=== PATIENT | female | born 1965 | race Two or more races ===

== ENCOUNTER 2017-12-25 08:39 | Day surgery (SDC) | payer OTHER ==
[~2017-12-25 08:39] MED LIST: DICLOFENAC SOD100 MG PO; HYDROCHLOROTH12.5 MG PO; LANTUS SOL100 UNIT/1; NEURONTIN300 MG PO; NOVOLOG100 UNIT/1; RAMIPRIL2.5 MG PO; SIMVASTATIN10 MG PO; TOPROL XL100 M1 PO
== END 2017-12-25 16:10 | disposition home or self-care (01) ==
LOC: CIR.AMB 08:39
DX: S63.286A Dislocation of proximal interphalangeal joint of right little finger, initial encounter (principal)